=== PATIENT | male | born 1985 | race Caucasian/White ===

== ENCOUNTER 2019-01-26 07:03 | Emergency (ER) | payer OTHER ==
[2019-01-26] MEDS: KETOROLAC 60 MG INJ IM (07:44)
[2019-01-26] MEDS: HYDROCODONE/APAP (5/325) TAB PO (07:45)
== END 2019-01-26 09:14 | disposition home or self-care (01) ==
LOC: FTE 09:14
DX: M25.531 Pain in right wrist (principal)
CPT/HCPCS: 29125; 73110-RT; 96372; 99284-25